=== PATIENT | male | born 1985 | race Two or more races ===

== ENCOUNTER 2024-07-03 20:14 | Emergency (ER) | payer MEDICARE, MEDICAID, SELFPAY ==
[2024-07-03 20:19] VITALS: BP 146/90; PULSE 92; RESP 16; TEMP 36.8; O2SAT 100
[2024-07-03 20:30] VITALS: PULSE 92; RESP 18; O2SAT 97; BMI 25.8
--- NOTE | 2024-07-03 20:48 | PD.EDRME ---
Rapid Medical Screening Exam [facility] Arrival date/time: 07/03/24 20:14 38M with no history of alcohol use presents to ED for evaluation after someone saw him lying in the street and called EMS. Patient states he has been drinking and has no complaints. Chief Complaint: Alcohol Vital signs: Vital Signs Temperature 98.2 F 07/03/24 20:19 Pulse Rate 92 07/03/24 20:19 Respiratory Rate 16 07/03/24 20:19 Blood Pressure 146/90 H 07/03/24 20:19 Pulse Oximetry (%) 100 07/03/24 20:19 Oxygen Delivery Method Room Air 07/03/24 20:19
[2024-07-04 02:53] VITALS: BP 133/83; PULSE 78; RESP 18; TEMP 36.7; O2SAT 96
--- NOTE | 2024-07-04 04:51 | PC.NURSE ---
PT REMAINS INTOXICATED IN A WHEELCHAIR IN THE LOBBY AND WHEN ASKED IF HE IS READY TO SEE THE PROVIDER, HE MOVES OVER TO HIS OTHER SIDE IN THE WHEELCHAIR AND GOES BACK TO SLEEP. PROVIDER AWARE
[2024-07-04 05:17] VITALS: BP 134/83; PULSE 82; RESP 18; TEMP 36.7; O2SAT 100
--- NOTE | 2024-07-04 05:34 | EDNOTE_ITS ---
ED Alcohol RME/HPI General Chief Complaint: Alcohol Stated Complaint: INTOXICATED Time Seen by Provider: 07/04/24 05:32 Arrival date/time: 07/03/24 20:14 38M with no history of alcohol use presents to ED for evaluation after someone saw him lying in the street and called EMS. Patient states he has been drinking and has no complaints. Limitations: no limitations RME / HPI RME / HPI narrative: 07/03/24 20:14 38M with no history of alcohol use presents to ED for evaluation after someone saw him lying in the street and called EMS. Patient states he has been drinking and has no complaints. Related Data Previous Rx's ?Medication ?Instructions ?Recorded mupirocin 2 % topical ointment 1 applic topical BID #2 2 grams 11/03/21 Allergies Allergy/AdvReac Type Severity Reaction Status Date / Time No Known Allergies Allergy Verified 11/08/23 04:16 Review of Systems Review of Systems Systems Reviewed: All systems reviewed, normal except as documented Constitutional Constitutional: Reports system reviewed and no additional complaints, except as documented, Denies fever(s) and Denies headache(s) ENT Ears, Nose, Mouth, and Throat: Denies disequilibrium and Denies headache(s) Cardiovascular Cardiovascular: Reports system reviewed and no additional complaints, except as documented, Denies chest pain and Denies dyspnea Respiratory Respiratory: Reports system reviewed and no additional complaints, except as documented, Denies cough and Denies dyspnea Gastrointestinal Gastrointestinal: Reports system reviewed and no additional complaints, except as documented, Denies abdominal pain, Denies nausea and Denies vomiting Neurologic Neurologic: Reports system reviewed and no additional complaints, except as documented, Denies confusion, Denies disequilibrium and Denies headache(s) Psychiatric Psychiatric: Denies confusion Past Medical History Past Medical History NEUROLOGIC: Negative Neurological Disorders or Seizures CARDIAC: Positive Hypertension; Negative Cardiac Disorders, Congestive Heart Failure, Edema, Cellulitis or Varic ose Veins RESPIRATORY: Negative Chronic Obstructive Pulmonary Disease (COPD), Asthma, Tuberculosis, Pulmonary Embolism or Sleep Apnea GASTROINTESTINAL: Positive Gastrointestinal Disorders and Gall Bladder Disease; Negative Hepatitis GENITOURINARY: Negative Genitourinary Disorders or Renal Disease MUSCULOSKELETAL: Negative Musculoskeletal Disorders ENDOCRINE: Negative Endocrine Disorders, Diabetes Mellitus Type 1 or Diabetes Mellitus Type 2 HEMATOLOGIC: Negative Blood Disorders or Sickle Cell Disease PSYCHO/SOCIAL: Positive Schizophrenia OTHER HISTORY: Positive Autoimmune Disease and Developmental Delay; Negative Hospitalization, Shingles, Falls, Blood Transfusions, Blood Transfusion Reaction, Anesthesia Reactions, Chemotherapy, Radiation Therapy, MRSA, Chicken Pox, Measles, Mumps or Cancer Family History FAMILY HISTORY: Positive Family Surgery; Negative Family Psychiatric Problems, Family Respiratory Disorders, Family Cardiac Disorders, Family Gastrointestinal Problems, Family Cancer or Family Anesthesia Reaction Surgical History SURGICAL: Positive Abdominal Surgery; Negative Pacemaker Social History SMOKING STATUS: Former smoker SUBSTANCE USE: does not use ED Exam General Limitations: Present no limitations General appearance: Present in no apparent distress and appears intoxicated Head Head exam: Present atraumatic Eye Eye exam: Present normal appearance, PERRL and EOMI ENT ENT exam: Present normal exam, normal oropharynx and mucous membranes moist Neck Neck exam: Present normal inspection, full ROM and trachea midline Chest Chest inspection: Present normal inspection and symmetric chest wall rise Respiratory Respiratory exam: Present normal lung sounds bilaterally Cardiovascular Cardiovascular exam: Present regular rate, normal rhythm and normal heart sounds Abdominal Exam Abdominal exam: Present soft and normal bowel sounds Extremities Exam Extremities exam: Present normal inspection and full ROM Back Exam Back exam: Present normal inspection and full ROM Neurological Exam Neurological exam: Present alert, oriented X3 and CN II-XII intact Psychiatric Psychiatric exam: Present normal affect and normal mood Skin Skin exam: Present warm, dry, intact and normal color Course Quality Measures none Orders Category Date Time Status Blood glucose [Bedside Blood Glucose] NOW Care 07/03/24 20:48 Active Vital Signs Vital signs: Vital Signs Temperature 98.2 F 07/03/24 20:19 Pulse Rate 92 07/03/24 20:19 Respiratory Rate 16 07/03/24 20:19 Blood Pressure 146/90 H 07/03/24 20:19 Pulse Oximetry (%) 100 07/03/24 20:19 Oxygen Delivery Method Room Air 07/03/24 20:19 O2 at 100% on RA and WNLs Discharge Plan Plan Patient Disposition: HOME (Self Care) Disposition Comment: Stable Prescriptions/Referrals Prescriptions/Med Rec: No Action mupirocin 2 % ointment 1 applic topical BID Qty: 22 0RF Referrals: No Primary/Family,Physician [Primary Care Provider] - In 1 week Problem List Clinical Impression: Alcoholic intoxication Patient/Caregiver Discharge Instructions Education Materials: ED Alcohol Intoxication Additional Instructions: Please follow-up with PCP within 24-48 hours and return immediately if symptoms worsen. Print Language: Hungarian Stand Alone Forms: Patient Portal Info Letter PA/STEEL CHIPPER Supervising Physician PA/STEEL CHIPPER Supervising Physician: Dr. Gentry Fam MDM Narrative MDM Narrative: 38M with no history of alcohol use presents to ED for evaluation after someone saw him lying in the street and called EMS. Patient states he has been drinking and has no complaints. Physical exam reveals normal pupil response and EOM. Clear lungs. RRR. Patient is afebrile, calm, but intoxicated. BS 200s. No negative changes after 9 hours of observation. Patient states he is now ready to go home. Patient data External records reviewed:: [facility] previous records Clinical information provided by:: patient Social determinants that could affect healthcare access:: alcohol use Patient has the following chronic illnesses:: alcohol use How is presenting disease/condition affected by chronic disease/condition?: caused by Evaluation data The following diagnostics were reviewed and interpreted by me:: lab results Lab and/or radiology exams considered but not ordered:: ordered Interpretation Summary: above Medications / Prescriptions Medications or Prescriptions considered but not ordered:: not ordered Medication administrations:: n/a Consultations Consultation(s) initiated? (list below): No Diagnosis Differential diagnosis alcohol: alcohol withdrawal delirium, hypomagnesemia, alcohol intoxication, alcohol ketoacidosis, alcohol withdrawal syndrome and alcohol withdrawal seizure Most likely diagnosis given after review of the tests above:: alcohol intoxication Admission Indicated Admission indicated?: not indicated Admission Request Was there a request for admission?: No Disposition Plan Disposition Plan: Discharge Discharge Attestation Discharge Attestation: The patient and all family members were given an opportunity to ask questions and understood the discharge instructions. Discharge instructions specifically effects, indications for sooner follow up or return to the emergency department, and the expected course of current diagnosis. Patient condition: Stable
== END 2024-07-04 05:37 | disposition home or self-care (01) ==
PROVIDERS: Emergency Provider Emergency Medicine
DX: F10.929 Alcohol use, unspecified with intoxication, unspecified (principal)
CPT/HCPCS: 99282